=== PATIENT | male | born 1960 ===

== ENCOUNTER 2019-08-22 09:14 | Emergency (ER) | payer OTHER ==
[2019-08-22] MEDS ORDERED: SODIUM CHLORIDE 0.9% 1,000 ML IV STA (10:04)
[2019-08-22 10:30] LABS: Basophils % (A) 0 %; Eosinophils # (A) 0.1 k/uL (0-0.7); Eosinophils % (A) 1 %; HCT 50.7 % (39.0-53.0); HGB 17.5 gm/dL (13.0-17.5); Lymphocytes # (A) 1.4 k/uL (1.0-4.8); Lymphocytes % (A) 16 %; MCH 35.1 pg (25.0-35.0); MCHC 34.4 g/dL (31.0-37.0); MCV 101.9 fL (80.0-100.0); Mean Platelet Volume 7.3; Monocytes # (A) 0.5 k/uL (0-1.0); Monocytes % (A) 6 %; Neutrophils # (A) 6.5 k/uL (1.3-7.7); Neutrophils % (A) 75 %; Platelet Count 190 k/uL (150-450); RBC 4.98 m/uL (4.30-5.90); RDW 11.9 % (11.5-15.5); WBC 8.7 k/uL (3.8-10.6)
[2019-08-22 10:39] LABS: INR 0.9 (<1.2); Prothrombin Time 9.9 sec (9.0-12.0)
[2019-08-22 10:52] LABS: ALT 21 U/L (21-72); AST 27 U/L (17-59); African American GFR (CKD) >90 (>60 ml/min/1.73 sqM); Albumin 4.3 g/dL (3.5-5.0); Alkaline Phosphatase 65 U/L (38-126); Anion Gap 10 mmol/L; Blood Urea Nitrogen 12 mg/dL (9-20); Calcium 9.8 mg/dL (8.4-10.2); Carbon Dioxide 22 mmol/L (22-30); Chloride 107 mmol/L (98-107); Glucose 103 mg/dL (74-99); Potassium 3.7 mmol/L (3.5-5.1); Sodium 139 mmol/L (137-145); Total Bilirubin 1.2 mg/dL (0.2-1.3); Total Protein 6.9 g/dL (6.3-8.2)
[2019-08-22 12:05] VITALS: RESP 18
--- NOTE | 2019-08-22 12:35 | CT ---
EXAMINATION TYPE: CT angio thor/abd pel aorta DATE OF EXAM: 08/22/2019 COMPARISON: CT chest 08/27/2013 HISTORY: 59-year-old male Severe back pain TECHNIQUE: Contiguous axial scanning of the chest, abdomen, and pelvis performed without and with IV Contrast, patient injected with 100 ml mL of Isovue 370. Coronal/sagittal MIP reconstructions perform ed. 3-D reconstructions generated on a dedicated independent workstation. CT DLP: 1524.8 mGycm Automated exposure control for dose reduction was used. FINDINGS: Chest: Heart normal size without pericardial effusion. Scattered coronary vessel calcifications are present. Aorta normal caliber with conventional arch vessel branching anatomy. No evidence for acute intramura l hematoma or aortic dissection. No large central pulmonary embolus. No thoracic lymphadenopathy. Mild dependent atelectasis. Mild diffuse bronchial wall thickening could reflect bronchitis or asthma . No consolidation or pleural effusion. ABDOMEN: Arterial phase imaging of the liver, gallbladder, adrenal glands, spleen with hilar splenule, and starr creas appear within normal limits. No nephrolithiasis or hydronephrosis. Abdominal aorta has no evidence for aortic dissection. No significant metastatic change or aneurysm. No dilated small bowel, free fluid, or free air. No mesenteric or retroperitoneal lymphadenopathy. Normal appendix. Lower descending colonic diverticulosis extending into the proximal to mid sigmoid c olon. Subsegmental focal peristalsis is present in the mid to distal sigmoid not persisting on the pr econtrast images. Pelvis: Marked distention of the urinary bladder up to 13.5 cm. Prostate gland measures 4.9 cm wide. Multiple pelvic phlebolith. No abnormal fluid collection in the pelvis or pelvic lymphadenopathy. Bones: Mild degenerative changes at the hips. Scattered sclerotic foci within the pelvis and bone islands. M ultilevel degenerative disc disease mid to lower lumbar spine with facet arthropathy. Grade 1 retroli sthesis at L3-L4 and L4-L5. No osseous destructive process. IMPRESSION: 1. NO EVIDENCE FOR ACUTE INTRACRANIAL HEMATOMA, AORTIC ANEURYSM, OR AORTIC DISSECTION. 2. A MILD DIFFUSE BRONCHIAL WALL THICKENING COULD REFLECT BRONCHITIS OR ASTHMA. OTHERWISE, NO ACUTE P ULMONARY PROCESS. 3. LEFT-SIDED COLONIC DIVERTICULOSIS WITHOUT ACUTE DIVERTICULITIS. 4. MARKED DISTENTION OF THE URINARY BLADDER. CORRELATE TO ENSURE THAT THIS REPRESENTS VOLUNTARY RETEN TION.
[2019-08-22] MEDS ORDERED: KETOROLAC 30 MG/ML 1 ML VIAL IVP STA (12:37)
--- NOTE | 2019-08-22 12:37 | ED ---
General Adult HPI - General Chief complaint: Neck Pain/Injury Stated complaint: BACK PAIN Time Seen by Provider: 08/22/19 09:23 Source: patient, EMS, RN notes reviewed Mode of arrival: EMS Limitations: no limitations - History of Present Illness Initial comments: 59-year-old male presents to the emergency department for a chief complaint of low back pain. Patient states he injured his back several years ago. That about 4-5 days ago he was carrying a heavy chest down some stairs. States that the further he went on the stairs heavier the chest that he was forced to take steps when he was not ready. States he felt a sudden pain in his back. Sates that this morning around 2 AM it was worse and he could barely get off the couch. Denies any weakness of the lower extremities. Denies any loss of sensation. Denies any bladder or bowel changes no numbness or tingling. Denies any history of IV drug abuse. Denies fevers or chills.Patient has no other complaints at this time including shortness of breath, chest pain, abdominal pain, nausea or vomiting, headache, or visual changes. - Related Data Previous Rx's Medication Instructions Recorded HYDROcodone/APAP 5-325MG [[place] 1 tab PO Q6HR PRN #11 tab 08/22/19 5-325] Ibuprofen [Motrin] 600 mg PO Q8HR PRN #20 tab 08/22/19 Allergies Allergy/AdvReac Type Severity Reaction Status Date / Time Penicillins AdvReac Rash/Hives Verified 08/22/19 10:21 Review of Systems ROS Statement: Those systems with pertinent positive or pertinent negative responses have been documented in the HPI. ROS Other: All systems not noted in ROS Statement are negative. Past Medical History Past Medical History: GERD/Reflux, Hypertension History of Any Multi-Drug Resistant Organisms: None Reported Additional Past Surgical History / Comment(s): colonoscopy Past Psychological History: No Psychological Hx Reported Smoking Status: Never smoker Past Alcohol Use History: Daily Past Drug Use History: Marijuana General Exam Limitations: no limitations General appearance: in distress (Mildly distressed secondary to pain) Head exam: Present: atraumatic, normocephalic, normal inspection Eye exam: Present: normal appearance, PERRL, EOMI. Absent: scleral icterus, conjunctival injection ENT exam: Present: normal exam, mucous membranes moist Neck exam: Present: normal inspection, full ROM. Absent: tenderness, meningismus, lymphadenopathy Respiratory exam: Present: normal lung sounds bilaterally. Absent: respiratory distress, wheezes, rales, rhonchi, stridor Cardiovascular Exam: Present: regular rate, normal rhythm, normal heart sounds. Absent: systolic murmur, diastolic murmur, rubs, gallop, clicks GI/Abdominal exam: Present: soft, normal bowel sounds. Absent: distended, tenderness, guarding, rebound, rigid Extremities exam: Present: normal capillary refill (Capillary refill less than 2 seconds, DP pulses 2+ in lower extremities bilaterally.). Absent: full ROM (Patient has pain when moving lower extremities as it tweeks his back. He is able to move his lower external nares.) Back exam: Absent: vertebral tenderness (No significant vertebral tenderness noted. Appears normal skin exam.) Course Vital Signs 08/22/19 08/22/19 08/22/19 09:20 09:30 10:00 Temperature 98.3 F Pulse Rate 68 Respiratory 24 Rate Blood Pressure 142/107 142/107 147/114 O2 Sat by Pulse 100 100 Oximetry 08/22/19 08/22/19 10:30 12:04 Temperature Pulse Rate 62 Respiratory 18 Rate Blood Pressure 144/94 145/89 O2 Sat by Pulse 100 Oximetry Medical Decision Making - Medical Decision Making Upon presentation patient is in pain. He was given morphine by EMS. CT aorta was initially obtained given patient's degree of pain. This shows no evidence for aortic aneurysm or dissection. There is however marked distention of the u rinary bladder. I did do a postvoid residual after this and only 50 mL was found in the bladder. Patient is denying any bladder retention or changes in bladder or bowel function. Denies any loss of sensation in lower extremities. Denies fevers or chills. Throughout patient's stay his pain significantly improved. Patient is now ambulatory without assistance and actually requested to walk to the bathroom rather than use the urinal. At this time patient will follow up outpatient with orthopedics. He will return if he has any worsening symptoms. - Lab Data Result diagrams: 08/22/19 10:08/22/19 10:13 Lab Results 08/22/19 08/22/19 08/22/19 Range/Units 10: 10: 10: WBC 8.7 (3.8-10.6) k/uL RBC 4.98 (4.30-5.90) m/uL Hgb 17.5 (13.0-17.5) gm/dL Hct 50.7 (39.0-53.0) % MCV 101.9 H (80.0-100.0) fL MCH 35.1 H (25.0-35.0) pg MCHC 34.4 (31.0-37.0) g/dL RDW 11.9 (11.5-15.5) % Plt Count 190 (150-450) k/uL Neutrophils % 75 % Lymphocytes % 16 % Monocytes % 6 % Eosinophils % 1 % Basophils % 0 % Neutrophils # 6.5 (1.3-7.7) k/uL Lymphocytes # 1.4 (1.0-4.8) k/uL Monocytes # 0.5 (0-1.0) k/uL Eosinophils # 0.1 (0-0.7) k/uL Basophils # 0.0 (0-0.2) k/uL PT 9.9 (9.0-12.0) sec INR 0.9 (<1.2) APTT 23.0 (22.0-30.0) sec Sodium 139 (137-145) mmol/L Potassium 3.7 (3.5-5.1) mmol/L Chloride 107 (98-107) mmol/L Carbon Dioxide 22 (22-30) mmol/L Anion Gap 10 mmol/L BUN 12 (9-20) mg/dL Creatinine 0.74 (0.66-1.25) mg/dL Est GFR (CKD-EPI)AfAm >90 (>60 ml/min/1.73 sqM) Est GFR (CKD-EPI)NonAf >90 (>60 ml/min/1.73 sqM) Glucose 103 H (74-99) mg/dL Calcium 9.8 (8.4-10.2) mg/dL Total Bilirubin 1.2 (0.2-1.3) mg/dL AST 27 (17-59) U/L ALT 21 (21-72) U/L Alkaline Phosphatase 65 (38-126) U/L Troponin I (0.000-0.034) ng/mL Total Protein 6.9 (6.3-8.2) g/dL Albumin 4.3 (3.5-5.0) g/dL 08/22/19 Range/Units 10:13 WBC (3.8-10.6) k/uL RBC (4.30-5.90) m/uL Hgb (13.0-17.5) gm/dL Hct (39.0-53.0) % MCV (80.0-100.0) fL MCH (25.0-35.0) pg MCHC (31.0-37.0) g/dL RDW (11.5-15.5) % Plt Count (150-450) k/uL Neutrophils % % Lymphocytes % % Monocytes % % Eosinophils % % Basophils % % Neutrophils # (1.3-7.7) k/uL Lymphocytes # (1.0-4.8) k/uL Monocytes # (0-1.0) k/uL Eosinophils # (0-0.7) k/uL Basophils # (0-0.2) k/uL PT (9.0-12.0) sec INR (<1.2) APTT (22.0-30.0) sec Sodium (137-145) mmol/L Potassium (3.5-5.1) mmol/L Chloride (98-107) mmol/L Carbon Dioxide (22-30) mmol/L Anion Gap mmol/L BUN (9-20) mg/dL Creatinine (0.66-1.25) mg/dL Est GFR (CKD-EPI)AfAm (>60 ml/min/1.73 sqM) Est GFR (CKD-EPI)NonAf (>60 ml/min/1.73 sqM) Glucose (74-99) mg/dL Calcium (8.4-10.2) mg/dL Total Bilirubin (0.2-1.3) mg/dL AST (17-59) U/L ALT (21-72) U/L Alkaline Phosphatase (38-126) U/L Troponin I <0.012 (0.000-0.034) ng/mL Total Protein (6.3-8.2) g/dL Albumin (3.5-5.0) g/dL Disposition Clinical Impression: Back pain Disposition: HOME SELF-CARE Condition: Good Instructions (If sedation given, give patient instructions): Back Pain (ED) Additional Instructions: Please take Motrin for pain. If pain is severe take [place]. Follow-up with primary care in 1-2 days. Return to the emergency department if you have any worsening symptoms. Prescriptions: Ibuprofen [Motrin] 600 mg PO Q8HR PRN #20 tab PRN Reason: Pain HYDROcodone/APAP 5-325MG [[place] 5-325] 1 tab PO Q6HR PRN #11 tab PRN Reason: Pain Is patient prescribed a controlled substance at d/c from ED?: No When asked, does pt state using other controlled substances?: No If prescribed controlled substance>3 days was MAPS reviewed?: Prescribed <3 Days If opioid is for acute pain is fill amount 7 days or less?: Yes If Rx opioid, was Start Talking consent form obtained?: Yes Referrals: Kendall Gongora MD [Primary Care Provider] - 1-2 days Mohan Segovia DO [Doctor of Osteopathic Medicine] - 1-2 days Time of Disposition: 13:56
[2019-08-22] MEDS ORDERED: ORPHENADRINE 30 MG/ML 2 ML VIAL IM STA (13:14)
[2019-08-22 14:14] VITALS: BP 131/100; PULSE 89; TEMP 97.3
== END 2019-08-22 14:14 | disposition home or self-care (01) ==
LOC: EC 09:14
DX: M54.5 Low back pain (principal); N32.89 Other specified disorders of bladder; Z88.0 Allergy status to penicillin; Z87.828 Personal history of other (healed) physical injury and trauma
CPT/HCPCS: 51798; 36415; 93005; 80053; 84484; 85025; 85610; 85730; 71275; 74174; 96374; 96361 ×2; 99284; J1885; Q9967

== ENCOUNTER 2020-10-28 10:12 | Day surgery (SDC) | payer OTHER ==
[2020-10-26 16:34] VITALS: BMI 25.1
[~2020-10-28 10:12] MED LIST: LACTATED RINGERS 1,000 ML IV SCH
[2020-10-28] MEDS ORDERED: LACTATED RINGERS 1,000 ML IV ONE (10:51)
[2020-10-28] MEDS ORDERED: LIDOCAINE 1% (10MG/ML) FOR IV START INTRADERMA ONE (10:53)
[2020-10-28 10:54] VITALS: RESP 18; TEMP 97.8
[2020-10-28] MEDS ORDERED: PROPOFOL 10 MG/ML 20 ML VIAL IV ONE (11:13)
--- NOTE | 2020-10-28 11:30 | P.PCN ---
Date of Procedure: 10/28/20 Procedure(s) Performed: BRIEF HISTORY: Patient is a 60-year-old pleasant male scheduled for an elective colonoscopy as a part of evaluation of prior history of colon polyps. Last colonoscopy was 5 years ago. PROCEDURE PERFORMED: Colonoscopy with biopsy. PREOPERATIVE DIAGNOSIS: History of colon polyps. IV sedation per Anesthesia. PROCEDURE: After informed consent was obtained, the patient, was brought into the endoscopy unit. IV sedation was administered by Anesthesia under continuous monitoring. Digital rectal examination was normal. Initially the Olympus CF-160 flexible video colonoscope was then inserted in the rectum, gradually advanced into the cecum without any difficulty. Careful examination was performed as the scope was gradually being withdrawn. Ileocecal valve and the appendiceal orifice were visualized and appeared normal. Prep was excellent. Mucosa of the cecum, ascending colon, transverse colon, descending colon, sigmoid colon, and rectum appeared normal. In the rectum there was a 3 mm polyp that was removed by cold biopsy. Scattered left-sided diverticulosis seen. Retroflexion was performed in the rectum and no lesions were seen. The patient tolerated the procedure well. IMPRESSION: 3 mm rectal polyp status post removal by cold biopsy Left-sided diverticulosis RECOMMENDATIONS: Findings of this examination were discussed with the patient as well as his family. He was advised to follow with the biopsy results. If the biopsy shows an adenoma he can have a repeat colonoscopy in 5 years.
[2020-10-28 11:54] VITALS: BP 156/92; PULSE 54
== END 2020-10-28 12:01 | disposition home or self-care (01) ==
LOC: ORWHC2ENDO 10:12
PROVIDERS: ATTEND Internal Medicine Gastroenterology
DX: Z12.11 Encounter for screening for malignant neoplasm of colon (principal); K62.1 Rectal polyp; K57.30 Diverticulosis of large intestine without perforation or abscess without bleeding; Z86.010 Personal history of colon polyps; Z88.0 Allergy status to penicillin; H40.9 Unspecified glaucoma; K21.9 Gastro-esophageal reflux disease without esophagitis; Z79.82 Long term (current) use of aspirin; Z79.899 Other long term (current) drug therapy
CPT/HCPCS: 88305; 45380; J2704